=== PATIENT | male | born 2000 | race Caucasian/White ===

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

== ENCOUNTER 2019-05-15 06:48 | Day surgery (SDC) | payer OTHER ==
[~2019-05-15 06:48] MED LIST: Lidocaine 1%/Sod Bicarbonate in NS 8.4% 1 ML Syringe IDERM PRN; Sodium Chloride 0.9% 10 ML Syringe FLUSH PRN
[2019-05-15] MEDS: Lactated Ringers 1,000 ML IV SCH ×2 (07:15→10:55)
[2019-05-15] MEDS ORDERED: Lactated Ringers 1,000 ML ONE (07:16)
[2019-05-15] MEDS ORDERED: Ondansetron 4 MG/2 ML SDV ONE (07:16)
[2019-05-15] MEDS ORDERED: Midazolam 1 MG/ML 2 ML SDV ONE (07:16)
[2019-05-15] MEDS ORDERED: Propofol 200 MG/20 ML SDV ONE ×2 (07:16→09:10)
[2019-05-15] MEDS ORDERED: Lidocaine 1% 4 ML ONE (07:16)
[2019-05-15] MEDS ORDERED: fentaNYL 250 MCG/5 ML SDV ONE (07:16)
[2019-05-15] MEDS ORDERED: ceFAZolin 1 GM Vial ONE (07:16)
[2019-05-15] MEDS ORDERED: Dexamethasone 4 MG/ML 5 ML MDV ONE (07:17)
[2019-05-15] MEDS ORDERED: Ketorolac 30 MG/ML SDV ONE (07:17)
[2019-05-15] MEDS ORDERED: Bupivacaine 0.25% 10 ML SDV ONE ×2 (07:27→07:58)
--- NOTE | 2019-05-15 08:03 | PCM.PREANE ---
Preanesthetic Assessment - Anesthesia/Transfusion/Family Hx Anesthesia History: Prior Anesthesia Without Reaction Family History of Anesthesia Reaction: No Transfusion History: No Prior Transfusion(s) - Review of Systems General: No Symptoms Pulmonary: No Symptoms Cardiovascular: No Symptoms Gastrointestinal: No Symptoms Neurological: No Symptoms Other: Reports: None - Physical Assessment NPO Status Date: 05/14/19 NPO Status Time: 22:30 Vital Signs: Last Vital Signs Temp 36.8 C 05/15/19 06:55 Pulse 96 05/15/19 06:55 Resp 16 05/15/19 06:55 BP 122/90 05/15/19 06:55 Pulse Ox 98 05/15/19 06:55 Height: 1.8 m Weight: 81.647 kg ASA Class: 1 Mental Status: Alert & Oriented x3 Airway Class: Mallampati = 1 Dentition: Reports: Normal Dentition Thyro-Mental Finger Breadths: 3 Mouth Opening Finger Breadths: 3 ROM/Head Extension: Full Lungs: Clear to Auscultation, Normal Respiratory Effort Cardiovascular: Regular Rate, Regular Rhythm - Lab Values: Laboratory Last Values MRSA (PCR) Negative 05/08/19 13:32 - Allergies Allergies/Adverse Reactions: Allergies Allergy/AdvReac Type Severity Reaction Status Date / Time No Known Allergies Allergy Verified 05/12/19 12:19 - Acknowledgements Anesthesia Type Planned: General Anesthesia Pt an Appropriate Candidate for the Planned Anesthesia: Yes Alternatives and Risks of Anesthesia Discussed w Pt/Guardian: Yes Pt/Guardian Understands and Agrees with Anesthesia Plan: Yes PreAnesthesia Questionnaire - Past Health History Medical/Surgical History: Denies Medical/Surgical History - SUBSTANCE USE Smoking Status *Q: Current Some Day Smoker Tobacco Use Within Last Twelve Months: Snuff/Dip Recreational Drug Use History: No - HOME MEDS Home Medications: Home Meds Acetaminophen/HYDROcodone [Telephone 325-5 MG] 1 - 2 tab PO Q6H PRN #60 tablet 05/15 [Rx] Aspirin 325 mg PO BID #84 tab 05/15/19 [Rx] - CURRENT (IN HOUSE) MEDS Current Meds: Current Medications Lactated Ringer's (Ringers, Lactated) 1,000 mls @ 125 mls/hr IV ASDIRECTED MARCIA Stop: 05/15/19 23:00 Last Admin: 05/15/19 07:15 Dose: 125 mls/hr Lidocaine/Sodium Bicarbonate (Buffered Lidocaine 1% In Ns 8.4%) 0.25 ml IDERM ONETIME PRN PRN Reason: Prior to IV Start Stop: 05/15/19 18:00 Last Admin: 05/15/19 07:10 Dose: 0.25 ml Sodium Chloride (Saline Flush) 10 ml FLUSH ASDIRECTED PRN PRN Reason: Keep Vein Open Stop: 05/15/19 18:00 Discontinued Medications Bupivacaine HCl (Sensorcaine-Mpf 0.25%) Confirm Administered Dose 10 ml .ROUTE .STK-MED ONE Stop: 05/15/19 07:28 Cefazolin Sodium (Ancef) Confirm Administered Dose 2 gm .ROUTE .STK-MED ONE Stop: 05/15/19 07:17 Dexamethasone (Dexamethasone) Confirm Administered Dose 20 mg .ROUTE .STK-MED ONE Stop: 05/15/19 07:18 Fentanyl (Sublimaze) Confirm Administered Dose 250 mcg .ROUTE .STK-MED ONE Stop: 05/15/19 07:17 Lidocaine HCl (Xylocaine-Mpf 1%) Confirm Administered Dose 4 mls @ as directed .ROUTE .STK-MED ONE Stop: 05/15/19 07:17 Lactated Ringer's (Ringers, Lactated) Confirm Administered Dose 1,000 mls @ as directed .ROUTE .STK-MED ONE Stop: 05/15/19 07:17 Ketorolac Tromethamine (Toradol) Confirm Administered Dose 30 mg .ROUTE .STK- MED ONE Stop: 05/15/19 07:18 Midazolam HCl (Versed 1 Mg/Ml) Confirm Administered Dose 2 mg .ROUTE .STK-MED ONE Stop: 05/15/19 07:17 Ondansetron HCl (Zofran) Confirm Administered Dose 4 mg .ROUTE .STK-MED ONE Stop: 05/15/19 07:17 Propofol (Diprivan 20 Ml) Confirm Administered Dose 400 mg .ROUTE .STK-MED ONE Stop: 05/15/19 07:17
[2019-05-15] MEDS ORDERED: EPINEPHrine 1 MG/ML SDV ONE (08:34)
[2019-05-15] MEDS ORDERED: Ropivacaine 0.5% 5 MG/ML 30 ML SDV ONE (08:35)
[2019-05-15] MEDS ORDERED: HYDROmorphone 0.5 MG/0.5 ML Syringe ONE (08:37)
[2019-05-15] MEDS ORDERED: Lidocaine 1% 2 ML ONE (08:39)
[2019-05-15] MEDS ORDERED: Ketamine 500 mg/10 ML MDV ONE (08:43)
[2019-05-15] MEDS ORDERED: Ondansetron 4 MG/2 ML SDV IVPUSH PRN (08:52)
[2019-05-15] MEDS ORDERED: HYDROmorphone 0.5 MG/0.5 ML Syringe IVPUSH PRN (08:52)
--- NOTE | 2019-05-15 09:51 | CR ---
Right ankle: Seven fluoroscopic spot views of the right ankle were obtained. Study obtained utilizing C-arm device. Comparison: Previous previous right tibia and fibula study of 05/10/17. Study shows placement of 2 cannulated screws within the medial malleolus. Ankle mortise is symmetric. Fluoroscopy time is given as 42.6 seconds. Impression: 1. Procedural study as described above. Diagnostic code #2 This report was dictated in [place] Standard Time
--- NOTE | 2019-05-15 09:56 | PCM.POSTAN ---
POST ANESTHESIA ASSESSMENT - MENTAL STATUS Mental Status: Somnolent - VITAL SIGNS Vital Signs: Last Vital Signs Temp 36.8 C 05/15/19 06:55 Pulse 96 05/15/19 06:55 Resp 16 05/15/19 06:55 BP 122/90 05/15/19 06:55 Pulse Ox 98 05/15/19 06:55 0948 114/53 82 12 98.4F 92% - RESPIRATORY Respiratory Status: Respiratory Rate WNL, Airway Patent, O2 Saturation Stable, Supplemental Oxygen - CARDIOVASCULAR CV Status: Pulse Rate WNL, Blood Pressure Stable - GASTROINTESTINAL GI Status: No Symptoms - PAIN Pain Score: 0 - POST OP HYDRATION Hydration Status: Adequate & Stable
[2019-05-15] MEDS: fentaNYL 100 MCG/2 ML SDV IVPUSH PRN ×2 (10:17→10:32)
[2019-05-15] MEDS ORDERED: Acetaminophen/HYDROcodone 325-5 MG Tab PO PRN (10:44)
--- NOTE | 2019-05-15 12:03 | PCM48HPAN ---
Post Anesthesia Note - EVALUATION WITHIN 48HRS OF ANESTHETIC Vital Signs in Normal Range: Yes Patient Participated in Evaluation: Yes Respiratory Function Stable: Yes Airway Patent: Yes Cardiovascular Function Stable: Yes Hydration Status Stable: Yes Pain Control Satisfactory: Yes Nausea and Vomiting Control Satisfactory: Yes Mental Status Recovered: Yes Vital Signs: Last Vital Signs Temp 36.9 C 05/15/19 11:00 Pulse 61 05/15/19 11:30 Resp 17 05/15/19 11:30 BP 146/76 H 05/15/19 11:30 Pulse Ox 95 05/15/19 11:30 - COMMENTS/OBSERVATIONS Free Text/Narrative:: no anesthesia complications noted
[2019-05-15 12:42] VITALS: BP 139/95; PULSE 75
--- NOTE | 2019-05-18 09:24 | PCM.OPNOTE ---
- General Post-Op/Procedure Note Date of Surgery/Procedure: 05/15/19 Operative Procedure(s): open reduction internal fixation right medial malleolus fracture Pre Op Diagnosis: right medial malleolus fracture Post-Op Diagnosis: Same Anesthesia Technique: General LMA, Local Primary Surgeon: Bandar Dos Santos Anesthesia Provider: Becky Mayorga Stone Polisher Hand: Lynn Alexander EBL in mLs: 10 Complications: None Condition: Good
--- NOTE | 2019-05-18 10:14 | OR ---
DATE OF OPERATION: 05/15/2019 SURGEON: Bandar Dos Santos MD OPERATION PERFORMED: Open reduction and internal fixation, right medial malleolus fracture. PREOPERATIVE DIAGNOSIS: Right medial malleolus fracture. POSTOPERATIVE DIAGNOSIS: Right medial malleolus fracture. ANESTHESIA: General LMA with local. ANESTHESIA PROVIDER: Africa Young CRNA. ANALYTICAL RESEARCH PROGRAM MANAGER: Lynn Alexander PA-C ESTIMATED BLOOD LOSS: 10 mL. COMPLICATIONS: None. CONDITION: Stable. DESCRIPTION OF PROCEDURE: The patient was identified in the preop holding area. Proper site was marked and identified by the surgeon. The patient was taken back to the operating theater, where after adequate anesthesia, the patient's right lower extremity had a nonsterile tourniquet applied and was then sterilely prepped and draped in the usual sterile fashion. OR time-out was performed. Patient received 2 g of IV Ancef. Right lower extremity was exsanguinated and tourniquet was insufflated to 250 mmHg. A standard medial incision was made through the skin layer. Blunt dissection was taken down. The saphenous nerve and vein were retracted anteriorly and the fracture site was identified. This was curetted and rongeured of all fracture hematoma at this time. Once I was able to visualize the fracture site all the way anteriorly, I was able to use a point-to- point reduction clamp as well as a dental pick to align the fracture site. Two K-wires for 4-0 cannulated screws were then placed in parallel fashion on both AP and lateral views, and it was found to be anatomically reduced at this time. Drill was then used to over drill the near cortex and two 40 mm 4-0 cannulated screws were then placed. It was found to have anatomic reduction on AP, mortise, and lateral views with the proper trajectory of the screws. Adequate saline was then irrigated through the wound, 2-0 Vicryl was used for closure of the subcutaneous layer. [place] were used for closure of the skin. Patient was placed in a sterile soft dressing and a posterior slab splint and sent to the PACU in stable condition. MMNICK /[id number]
== END 2019-05-15 12:07 | disposition home or self-care (01) ==
LOC: JD.SDS 06:48
PROVIDERS: ATTEND Orthopaedic Surgery
DX: S82.51XA Displaced fracture of medial malleolus of right tibia, initial encounter for closed fracture (principal); F17.220 Nicotine dependence, chewing tobacco, uncomplicated; V89.2XXA Person injured in unspecified motor-vehicle accident, traffic, initial encounter; Z79.82 Long term (current) use of aspirin
CPT/HCPCS: 27766; 76000; 87641; J0171; J0690; J1100; J1170; J1885; J2001; J2250; J2405; J2704; J3010; J3490; J7120; 01480; C1713; C1769; J2795